=== PATIENT | female | born 1970 | race Caucasian/White ===

== ENCOUNTER 2022-08-22 18:27 | Emergency (ER) | payer SELFPAY ==
[2022-08-22] VITALS (7 sets, daily range): BP systolic 93–151; BP diastolic 75–85; PULSE 85–117; RESP 12–20; TEMP 36.7; O2SAT 95–100
[2022-08-22 18:45] LABS: Glucose Point of Care 392 mg/dl (65-105)
--- NOTE | 2022-08-22 19:03 | ED.RECABL ---
HPI - Recheck/Abnormal Lab/Rx General Chief Complaint: Recheck/Abnormal Lab/Rx Stated Complaint: High Blood Sugar Time Seen by Provider: 08/22/22 18:55 History of Present Illness HPI narrative: Patient is a 52-year-old female with a history of hypertension, hyperlipidemia presenting with high glucose. Patient states that she is in town from [place] visiting her sister. She has noticed increased thirst and urination for the last several weeks. They were at a friend's house and she had her friend checked her blood glucose and it read high . Patient bought a glucometer and checked her sugar several times this afternoon and found it to be in the 400s. She googled hyperglycemia and became scared so she came in for evaluation. She denies headache fever, chest pain, shortness of breath, cough, abdominal pain, nausea or vomiting, diarrhea, dysuria, leg swelling. Related Data Home Medications Medication Instructions Recorded Confirmed atorvastatin 40 mg tablet 40 mg PO DAILY 08/22/22 carvedilol 3.125 mg tablet 3.125 mg PO BID 08/22/22 hydrochlorothiazide 08/22/22 losartan 08/22/22 naltrexone 08/22/22 Allergies Allergy/AdvReac Type Severity Reaction Status Date / Time bupropion [From Wellbutrin] Allergy Hives Verified 08/22/22 18:57 lisinopril Allergy Hives Verified 08/22/22 18:57 Review of Systems Review of Systems: All systems reviewed & are unremarkable except as noted in HPI and below Exam Narrative: GENERAL: Well-appearing, well-nourished, and in no acute distress. HEAD: Normocephalic, atraumatic. EYES: PERRLA and EOMI. ENT: Nares clear, no rhinorrhea or epistaxis. Mucous membranes moist. NECK: Supple. CHEST: Clear to auscultation. No respiratory distress. HEART: Tachycardic, regular rhythm. No murmur heard. Normal peripheral pulses. ABDOMEN: Soft, nontender, nondistended, normal active bowel sounds. EXTREMITIES: Normal range of motion. No edema. SKIN: Warm, dry, no rash. NEURO: No focal deficits. Alert and oriented x3. PSYCH: Normal mood and affect. Course Course Emergency Course: Patient is a 52-year-old female presenting with hyperglycemia. Patient is slightly tachycardic, otherwise vitals are within normal limits. Exam is unremarkable. A1c >14. No evidence of DKA. Potassium and magnesium are slightly low so will replete here. Patient is visiting her sister from another state so she will not be able to follow-up with her PCP for a couple of weeks. We will provide a prescription for metformin until she can follow-up. Strict return precautions were given. Patient voiced understanding and is agreeable with plan. Discharged in stable condition. Vital Signs Vital signs: Vital Signs Temperature 98.1 F 08/22/22 18:35 Pulse Rate 104 H 08/22/22 18:35 Respiratory Rate 20 08/22/22 18:35 Blood Pressure 146/85 H 08/22/22 18:35 Pulse Oximetry 95 08/22/22 18:35 Temperature 98.1 F 08/22/22 18:35 Pulse Rate 87 08/22/22 20:59 Respiratory Rate 12 08/22/22 20:59 Blood Pressure 138/79 08/22/22 20:59 Pulse Oximetry 98 08/22/22 20:59 MDM - Recheck/Abnormal Lab/Rx Lab Data Result diagrams: 08/22/22 19:57 08/22/22 19:57 Labs: Lab Results 08/22/22 08/22/22 08/22/22 Range/Units 18:43 19:57 19:57 WBC 8.3 (4.5-10.0) K/mm3 RBC 5.47 H (4.2-5.4) M/mm3 Hgb 15.6 H (12.0-15.0) g/dL Hct 46.3 (37.0-47.0) % MCV 84.6 (80-100) fl MCH 28.5 (26-34) pg MCHC 33.7 (32-36) g/dl RDW 13.4 (11.5-14.5) % Plt Count 181 (150-375) k/mm3 MPV 11.0 H (7.4-10.4) fl Immature Gran % (Auto) 0.6 H (0-0.5) % Neut % (Auto) 58.2 (45.5-73.1) % Lymph % (Auto) 33.5 (18.3-44.2) % [place] % (Auto) 5.2 (2.6-8.5) % Eos % (Auto) 2.1 (0-4.4) % Baso % (Auto) 0.4 (0.2-1.2) % Lymph # (Auto) 2.77 (0.9-3.2) K/mm3 [place] # (Auto) 0.4 (0.1-0.6) K/mm3 Eos # (Auto) 0.2 (0-0.3) K/mm3 Baso # (Auto
[2022-08-22] MEDS: SODIUM CHLORIDE 0.9% IV 1,000 ML 999 ML IV CONT (19:58)
[2022-08-22 20:02] LABS: Basophils Percent Auto 0.4 % (0.2-1.2); Eosinophils Absolute Auto 0.2 K/mm3 (0-0.3); Eosinophils Percent Auto 2.1 % (0-4.4); Hematocrit 46.3 % (37.0-47.0); Hemoglobin 15.6 g/dL (12.0-15.0); Immature Granulocyte Absolute 0.05 K/mm3 (0.00-0.031); Immature Granulocyte Percent A 0.6 % (0-0.5); Lymphocytes Absolute Auto 2.77 K/mm3 (0.9-3.2); Lymphocytes Percent Auto 33.5 % (18.3-44.2); Mean Corpuscular HGB Conc 33.7 g/dl (32-36); Mean Corpuscular Hemoglobin 28.5 pg (26-34); Mean Corpuscular Volume 84.6 fl (80-100); Monocytes Absolute Auto 0.4 K/mm3 (0.1-0.6); Monocytes Percent Auto 5.2 % (2.6-8.5); Neutrophils Absolute Auto 4.8 K/mm3 (1.3-6.7); Neutrophils Percent Auto 58.2 % (45.5-73.1); Platelet Count Result 181 k/mm3 (150-375); Red Blood Count 5.47 M/mm3 (4.2-5.4); Red Cell Distribution Width 13.4 % (11.5-14.5); White Blood Count 8.3 K/mm3 (4.5-10.0)
[2022-08-22 20:20] LABS: Alanine Aminotransferase 25 U/L (6-35); Albumin Level 4.5 g/dL (3.5-5.1); Alkaline Phosphatase 83 U/L (38-126); Anion Gap 16 mmol/L (8-16); Aspartate Amino Transferase 27 U/L (14-36); Bilirubin,Total 0.6 mg/dL (0.2-1.3); Blood Urea Nitrogen 16 mg/dL (7-17); Calcium 9.4 mg/dL (8.4-10.2); Carbon Dioxide 27 mmol/L (22-30); Chloride 94 mmol/L (98-107); Estimated CRCL calculation 94 ml/min; Estimated Glomerular Filt Rate > 60; Glucose 342 mg/dL (65-110); Magnesium 1.5 mg/dL (1.6-2.3); Potassium 3.2 mmol/L (3.4-5.0); Sodium 137 mmol/L (137-145)
[2022-08-22 20:29] LABS: Hemoglobin A1C > 14.0 % (<5.7)
== END 2022-08-22 21:05 | disposition home or self-care (01) ==
PROVIDERS: Emergency Provider Emergency Medicine
DX: R73.9 Hyperglycemia, unspecified (principal); E87.6 Hypokalemia; I10 Essential (primary) hypertension; E78.5 Hyperlipidemia, unspecified
CPT/HCPCS: 36415; 80053; 82010; 82948; 83036; 83735; 85025; 96360; 99283; J7030